=== PATIENT | male | born 1950 | race Caucasian/White ===

== ENCOUNTER 2021-10-31 20:45 | Emergency (ER) | payer MEDICARE, BC, SELFPAY ==
[2021-10-31] VITALS (10 sets, daily range): BP systolic 114–126; BP diastolic 61–68; PULSE 84–110; RESP 18–38; TEMP 36.2; O2SAT 95–97; BMI 32.1
--- NOTE | 2021-10-31 21:09 | DI.RAD.S_ITS ---
PROCEDURE: XR CHEST 1V INDICATIONS: chest pain TECHNIQUE: One view of the chest was acquired. COMPARISON: None. FINDINGS: Surgical changes and devices: None. Lungs and pleura: Lungs are clear. No pleural effusions or pneumothorax. Mediastinum: Mediastinal contours appear normal. Heart size is normal. Bones and chest wall: No suspicious bony lesions. Overlying soft tissues appear unremarkable. IMPRESSION: No acute cardiopulmonary process demonstrated radiographically. Dictated by: Adolph Lutz M.D. on 10/31/2021 at 21:32 Approved by: Adolph Lutz M.D. on 10/31/2021 at 21:32
[2021-10-31 21:22] LABS: Add Manual Diff / Slide Review NO; Basophils Absolute Auto 0 /uL (0-100); Eosinophils Absolute Auto 0 /uL (0-450); Eosinophils Percent Auto 1.1 % (2-4); Hematocrit 37.1 % (41-53); Hemoglobin 12.5 g/dL (13.5-17.5); Lymphocytes Absolute Auto 1300 /uL (1100-4500); Lymphocytes Percent Auto 30.1 % (25-40); Mean Corpuscular HGB Conc 33.6 % (30-36); Mean Corpuscular Hemoglobin 27.5 PG (26-34); Mean Corpuscular Volume 81.8 fL (80-100); Monocytes Absolute Auto 400 /uL (0-900); Monocytes Percent Auto 10.3 % (3-14); Neutrophils Absolute Auto 2400 /uL (1500-7000); Neutrophils Percent Auto 57.5 % (50-75); Platelet Count 203 X10^3/uL (150-400); Red Blood Cell Count 4.53 X10^6/uL (4.5-5.9); Red Cell Distribution Width 15.2 % (11.6-14.8); White Blood Cell Count 4.2 X10^3/uL (4.5-11.0)
[2021-10-31 21:25] LABS: Alanine Aminotransferase 15 IU/L (<50); Albumin 4.1 g/dL (3.5-5.0); Albumin Globulin Ratio 1.3 (1.0-2.8); Alkaline Phosphatase 58 U/L (38-126); Aspartate Aminotransferase 32 IU/L (17-59); BUN Creatinine Ratio 7.5 (6-22); Bilirubin Total 0.3 mg/dL (0.2-1.3); Blood Urea Nitrogen 8 mg/dL (9-20); Calcium 8.3 mg/dL (8.4-10.2); Carbon Dioxide 22 mmol/L (22-32); Chloride 99 mmol/L (98-107); Creatine Kinase 112 U/L (55-170); Estimated Glomerular Filt Rate > 60 mL/min (>60); Globulin 3.1 g/dL (1.7-4.1); Glucose 157 mg/dL (80-110); HEMOLYSIS 15 (0-50); Sodium 132 mmol/L (137-145); Total Protein 7.2 g/dL (6.3-8.2)
--- NOTE | 2021-10-31 21:33 | ED.SYNCOPE ---
HPI - Syncope General Chief Complaint: Syncope Stated Complaint: Syncope Time Seen by Provider: 10/31/21 21:09 Source: patient and EMS Mode of arrival: EMS Limitations: no limitations History of Present Illness HPI narrative: Patient brought in by ambulance from a restaurant. A [place] restaurant. For syncope. Blood sugar 157 by EMS. Patient is awake alert oriented x4. Has no complaints. EKG by EMS sinus rhythm. Patient states it was very hot in the restaurant. It is very hot right now the summer. We are under a heat wave. It is 90+ degrees outside. Patient states he felt very warm and hot and sweaty and he states he passed out. He states it was less than 1 minute. Denies any fall or injury. He was in a seated position at the restaurant. Patient feels much better now. Patient states this has happened before with hot weather. In February of last year he was in [place] and was very hot hand he did not have very much to drink. He passed out then. No injury. Patient denies today any presyncope chest pain palpitations dizziness headache chest pain abdominal pain back pain. Denies any recent illness. No recent black or bloody stools. Patient states the whole family feels hot in the restaurant Related Data Allergies Allergy/AdvReac Type Severity Reaction Status Date / Time No Known Drug Allergies Allergy Verified 10/31/21 22:03 Review of Systems Review of Systems Narrative: GENERAL: Denies chills, fatigue, malaise, fever, positive for sweats. HEENT: Denies sinus pain, ear pain, sore throat RESPIRATORY: Denies dyspnea, cough CARDIOVASCULAR: Denies chest pain, palpitations GASTROINTESTINAL: Denies nausea, vomiting, abdominal pain : Denies dysuria, frequency, hematuria MUSCULOSKELETAL: denies muscle or bony pain SKIN: Denies rash, skin lesions NEUROLOGIC: Denies weakness, numbness, positive for dizziness ROS Unobtainable: All systems reviewed & are unremarkable except as noted in HPI and below Patient History Social History Smoking Status: Never smoker Smoking Status: Never smoker alcohol intake frequency: 3 or more drinks per day Substance Use Type: does not use Exam Narrative Exam Narrative: GENERAL: in no distress, not toxic not dyspneic HEAD: Normocephalic. EYES: Pupils equal round No scleral icterus. ENT: Mucous membranes moist. NECK: Trachea midline. CARDIOVASCULAR: Regular rate and rhythm without murmurs RESPIRATORY: Clear to auscultation. Breath sounds equal bilaterally. No wheezes, rales, or rhonchi. GASTROINTESTINAL: Abdomen soft, non-tender EXTREMITIES: No gross deformities. BACK: No flank tenderness. NEURO: AOx4. 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 SKIN: Warm and dry PSYCH: Not anxious, is cooperative Initial Vital Signs Initial Vital Signs: Vital Signs Pulse Rate 89 10/31/21 20:52 Respiratory Rate 25 H 10/31/21 20:52 Pulse Oximetry 97 10/31/21 20:52 Course Course Course Narrative: No new issues during course of stay Orders Ordered: ED Orders 10/31/21 23:00 CT angio chest PE protocol Stat 10/31/21 23:15 Respiratory Panel (Film Array) Stat 11/01/21 00:22 Troponin & CK Cardiac Panel Stat Discontinued Medications Hydromorphone HCl (Hydromorphone 1 Mg Inj) 1 mg IV NOW ONE Stop: 11/01/21 01:12 Last Admin: 11/01/21 02:35 Dose: Not Given Documented By: TIM Sodium Chloride (Normal Saline 0.9%) 1,000 mls @ 1,000 mls/hr IV BOLUS ONE Stop: 10/31/21 23:59 Last Admin: 10/31/21 23:46 Dose: Not Given Documented By: TIM Ondansetron HCl (Ondansetron 4 Mg/2 Ml Inj) 4 mg IV NOW ONE Stop: 11/01/21 01:12 Last Admin: 11/01/21 02:36 Dose: Not Given Documented By: TIM Reevaluation(s) Reevaluation #1: Family did not show appear. [place]. I did speak with . Patient had fever and nausea vomiting 2 days ago. History UTIs in the past. Patient does have history of pulmonary embolism now discovered, patient did not reveal this earlier. CT scan will be ordered. Normal saline ordered. COVID swab ordered. Time: 22:59 Reevaluation #2: Reviewed images with patient. Laboratory repeated troponin no change. Still normal. Viral swab is negative. Likely vasovagal episode. Return precautions reviewed with him. He desires discharge home. Time: 01:31 Additional Reevaluation(s): Patient did stay in the department until 630 in the morning due to family could not pick him up his cannot drive in the dark and no others could pick him up. No new complaints or issues during course of stay Vital Signs Vital signs: Vital Signs - 8 hr 10/31/21 23:00 10/31/21 23:00 10/31/21 23:30 Pulse Rate 84 Respiratory Rate 21 33 H Blood Pressure 123/65 Pulse Oximetry 96 11/01/21 00:00 11/01/21 00:01 11/01/21 00:01 Pulse Rate 99 H 92 H Respiratory Rate 19 19 Blood Pressure 130/75 Pulse Oximetry 96 95 11/01/21 00:30 11/01/21 01:00 11/01/21 01:30 Pulse Rate 84 82 79 Respiratory Rate 15 20 23 Blood Pressure Pulse Oximetry 97 94 94 MDM - Syncope Differential Diagnosis Differential diagnosis: Likely syncope due to orthostatic hypotension, vasovagal syncope, complete atrioventricular block, pulmonary embolism and dehydration Lab Data Result diagrams: 10/31/21 20:35 10/31/21 20:35 Labs: Lab Results 10/31/21 10/31/21 10/31/21 Range/Units 20:35 20:35 21:30 WBC 4.2 L (4.5-11.0) X10^3/uL RBC 4.53 (4.5-5.9) X10^6/uL Hgb 12.5 L (13.5-17.5) g/dL Hct 37.1 L (41-53) % MCV 81.8 (80-100) fL MCH 27.5 (26-34) PG MCHC 33.6 (30-36) % RDW 15.2 H (11.6-14.8) % Plt Count 203 (150-400) X10^3/uL Neut % (Auto) 57.5 (50-75) % Lymph % (Auto) 30.1 (25-40) % [place] % (Auto) 10.3 (3-14) % Eos % (Auto) 1.1 L (2-4) % Baso % (Auto) 1.0 (0-2) % Neut # (Auto) 2400 (1263-0842) /uL Lymph # (Auto) 1300 (8727-0013) /uL [place] # (Auto) 400 (0-900) /uL Eos # (Auto) 0 (0-450) /uL Baso # (Auto) 0 (0-100) /uL Sodium 132 L (137-145) mmol/L Potassium 4.0 (3.4-5.1) mmol/L Chloride 99 (98-107) mmol/L Carbon Dioxide 22 (22-32) mmol/L BUN 8 L (9-20) mg/dL Creatinine 1.07 (0.66-1.25) mg/dL Estimated GFR > 60 (>60) mL/min BUN/Creatinine Ratio 7.5 (6-22) Glucose 157 H (80-110) mg/dL Calcium 8.3 L (8.4-10.2) mg/dL Total Bilirubin 0.3 (0.2-1.3) mg/dL AST 32 (17-59) IU/L ALT 15 (<50) IU/L Alkaline Phosphatase 58 (38-126) U/L Total Creatine Kinase 112 (55-170) U/L CK-MB (CK-2) 0.97 (<2.37) ng/mL CK-MB (CK-2) Rel Index 0.9 L (1.5-5.0) % Troponin I < 0.012 (0.01-0.034) ng/mL Total Protein 7.2 (6.3-8.2) g/dL Albumin 4.1 (3.5-5.0) g/dL Globulin 3.1 (1.7-4.1) g/dL Albumin/Globulin Ratio 1.3 (1.0-2.8) Urine Color Yellow Urine Appearance Clear Urine pH 6.5 (4.5-8.0) Ur Specific [place] <=1.005 (1.000-1.035) Urine Protein Negative (Negative) Urine Glucose (UA) Negative (Negative) g/dL Urine Ketones Negative (NEGATIVE) Urine Occult Blood Trace-lysed (Negative) Urine Nitrate Negative (Negative) Urine Bilirubin Negative (NEGATIVE) Urine Urobilinogen 0.2 (0.2) E.U./dL Ur Leukocyte Esterase Negative (NEGATIVE) Urine RBC None seen (0-5/HPF) Urine WBC 0-1/hpf (0-5/HPF) Ur Squamous Epith Cells 0-1 /hpf (0-5/HPF) Urine Bacteria None seen (None) Ur Culture Indicated? Cult not indicated Chlamy pneumoniae PCR (Not Detect) Adenovirus (PCR) (Not Detect) B. pertussis DNA (PCR) (Not Detecte) B.parapertussis DNA PCR (Not Detecte) Coronavirus OC43 (PCR) (Not Detect) Coronavirus HKU1 (PCR) (Not Detect) Coronavirus 229E (PCR) (Not Detect) SARS-CoV-2 (PCR) (Not Detecte) Coronavirus NL63 (PCR) (Not Detect) Human Metapneumovir PCR (Not Detect) Influenza Type A (PCR) (Not Detect) Influenza Type B (PCR) (Not Detect) M. pneumoniae (PCR) (Not Detect) Parainfluenza 1 (PCR) (Not Detect) Parainfluenza 2 (PCR) (Not Detect) Parainfluenza 3 (PCR) (Not Detect) Parainfluenza 4 (PCR) (Not Detect) RSV (PCR) (Not Detect) Entero/Rhino (PCR) (Not Detect) 10/31/21 11/01/21 Range/Units 23:15 00:22 WBC (4.5-11.0) X10^3/uL RBC (4.5-5.9) X10^6/uL Hgb (13.5-17.5) g/dL Hct (41-53) % MCV (80-100) fL MCH (26-34) PG MCHC (30-36) % RDW (11.6-14.8) % Plt Count (150-400) X10^3/uL Neut % (Auto) (50-75) % Lymph % (Auto) (25-40) % [place] % (Auto) (3-14) % Eos % (Auto) (2-4) % Baso % (Auto) (0-2) % Neut # (Auto) (5342-2439) /uL Lymph # (Auto) (0866-6954) /uL [place] # (Auto) (0-900) /uL Eos # (Auto) (0-450) /uL Baso # (Auto) (0-100) /uL Sodium (137-145) mmol/L Potassium (3.4-5.1) mmol/L Chloride (98-107) mmol/L Carbon Dioxide (22-32) mmol/L BUN (9-20) mg/dL Creatinine (0.66-1.25) mg/dL Estimated GFR (>60) mL/min BUN/Creatinine Ratio (6-22) Glucose (80-110) mg/dL Calcium (8.4-10.2) mg/dL Total Bilirubin (0.2-1.3) mg/dL AST (17-59) IU/L ALT (<50) IU/L Alkaline Phosphatase (38-126) U/L Total Creatine Kinase 95 (55-170) U/L CK-MB (CK-2) TNP (<2.37) ng/mL CK-MB (CK-2) Rel Index TNP (1.5-5.0) % Troponin I < 0.012 (0.01-0.034) ng/mL Total Protein (6.3-8.2) g/dL Albumin (3.5-5.0) g/dL Globulin (1.7-4.1) g/dL Albumin/Globulin Ratio (1.0-2.8) Urine Color Urine Appearance Urine pH (4.5-8.0) Ur Specific [place] (1.000-1.035) Urine Protein (Negative) Urine Glucose (UA) (Negative) g/dL Urine Ketones (NEGATIVE) Urine Occult Blood (Negative) Urine Nitrate (Negative) Urine Bilirubin (NEGATIVE) Urine Urobilinogen (0.2) E.U./dL Ur Leukocyte Esterase (NEGATIVE) Urine RBC (0-5/HPF) Urine WBC (0-5/HPF) Ur Squamous Epith Cells (0-5/HPF) Urine Bacteria (None) Ur Culture Indicated? Chlamy pneumoniae PCR Not detected (Not Detect) Adenovirus (PCR) Not detected (Not Detect) B. pertussis DNA (PCR) Not detected (Not Detecte) B.parapertussis DNA PCR Not detected (Not Detecte) Coronavirus OC43 (PCR) Not detected (Not Detect) Coronavirus HKU1 (PCR) Not detected (Not Detect) Coronavirus 229E (PCR) Not detected (Not Detect) SARS-CoV-2 (PCR) Not detected (Not Detecte) Coronavirus NL63 (PCR) Not detected (Not Detect) Human Metapneumovir PCR Not detected (Not Detect) Influenza Type A (PCR) Not detected (Not Detect) Influenza Type B (PCR) Not detected (Not Detect) M. pneumoniae (PCR) Not detected (Not Detect) Parainfluenza 1 (PCR) Not detected (Not Detect) Parainfluenza 2 (PCR) Not detected (Not Detect) Parainfluenza 3 (PCR) Not detected (Not Detect) Parainfluenza 4 (PCR) Not detected (Not Detect) RSV (PCR) Not detected (Not Detect) Entero/Rhino (PCR) Not detected (Not Detect) Imaging Data Chest x-ray: Radiologist's Impression: [place] [address] XRay Report Signed Patient: Michele Pina MR#: [id number] : 1950 Acct:[id number] Age/Sex: 71 / M Date of Service: 10/31/21 Loc: ED Accession Number: [id number] ?? Procedure: XR chest 1V Ordering Provider: Allen Hilario MD PROCEDURE:? XR CHEST 1V ? INDICATIONS:? chest pain ? TECHNIQUE:? One view of the chest was acquired.? ? COMPARISON:? None. ? FINDINGS:? ? Surgical changes and devices:? None.? ? Lungs and pleura:? Lungs are clear.? No pleural effusions or pneumothorax.? ? Mediastinum:? Mediastinal contours appear normal.? Heart size is normal.? ? Bones and chest wall:? No suspicious bony lesions.? Overlying soft tissues appear unremarkable.? ? IMPRESSION:? No acute cardiopulmonary process demonstrated radiographically. ? Dictated by: Adolph Lutz M.D. on 10/31/2021 at 21:32 ? ? Approved by: Adolph Lutz M.D. on 10/31/2021 at 21:32 ? CT scan - chest: Radiologist's Impression: [address] [address] [address] Scan Report Signed Patient: Michele Pina MR#: [id number] : 1950 Acct:[id number] Age/Sex: 71 / M Date of Service: 10/31/21 Loc: ED Accession Number: [id number] ?? Procedure: CT angio chest PE protocol Ordering Provider: Allen Hilario MD PROCEDURE:? CT ANGIO CHEST PE PROTOCOL ? INDICATIONS:? Syncope ? TECHNIQUE:? After the administration of intravenous contrast, 2 mm thick sections acquired from the pulmonary apices to the posterior costophrenic angles.? 3-dimensional maximum intensity projection (MIP) coronal and sagittal reformats were then acquired through the thorax.? For radiation dose reduction, the following was used:? automated exposure control, adjustment of mA and/or kV according to patient size.? ? COMPARISON:? None. ? FINDINGS:? Image quality:? Excellent.? ? Pulmonary arteries:? Pulmonary arteries are normal in size, and demonstrate no intraluminal filling defects to suggest central pulmonary embolism.? ? Lungs and pleura:? Lungs are clear.? No pleural effusions or pneumothorax.? Central and peripheral airways are patent.? ? Mediastinum:? Heart size is normal, without pericardial effusion.? No mediastinal or hilar adenopathy.? Thoracic aorta is normal in caliber and enhancement.? Esophagus is normal in caliber, without hiatal hernia.? ? Bones and chest wall:? No suspicious bony lesions.? Ribs and thoracic spine appear intact throughout.? Thyroid gland normal.? No axillary or supraclavicular adenopathy.? ? Abdomen:? Visualized upper abdominal solid organs appear normal in the early arterial phase of enhancement.? ? IMPRESSION:? No pulmonary embolism or other acute finding in the chest. ? ? Dictated by: Adolph Lutz M.D. on 10/31/2021 at 23:39 ? ? Approved by: Adolph Lutz M.D. on 10/31/2021 at 23:40 ? ECG Data Interpretation: Normal sinus rhythm 86 rate, no ST elevation or depression MDM Narrative Medical decision making narrative: Appropriate for discharge home. Exam and laboratory studies are reassuring. No chest pain no palpitations no disease no complaints of back pain or abdominal pain prior to syncope. Likely vasovagal. Reviewed with patient and . Spoke to by phone. She is able to come here. Does not drive in the dark. Similar episode in February of this year and when it was very high and down there. It is very hot here. With recent fever and nausea vomiting a couple days ago may have triggered easily tonight be in hot environment to pass out. Return precautions reviewed with patient. Not toxic at discharge. At baseline at discharge. No complaints. Discharge Plan Departure Patient Disposition: Home Clinical Impression: Vasovagal syncope Instructions: DI for Syncope in Adults (Fainting) Activity Restrictions/Additional Instructions: Keep well hydrated. Return if worse if any questions or concerns. Be very careful being in the heat as it may cause lowering of blood pressure and cause you to pass out. Keep well hydrated. Try to stay in cool environment as best as you can. It is very hot this summer.
[2021-10-31 21:37] LABS: Troponin I < 0.012 ng/mL (0.01-0.034)
[2021-10-31 21:40] LABS: CKMB % Relative Index 0.9 % (1.5-5.0); Creatine Kinase MB 0.97 ng/mL (<2.37)
[2021-10-31 22:10] LABS: Appearance Urine UA CLEAR; Bilirubin Urine UA NEGATIVE (NEGATIVE); Color Urine UA YELLOW; Glucose Urine UA NEGATIVE (Negative); Ketones Urine UA NEGATIVE (NEGATIVE); Leukocyte Esterase Urine UA NEGATIVE (NEGATIVE); Nitrite Urine UA NEGATIVE (Negative); Occult Blood Urine UA TRACE-LYSED (Negative); Protein Urine UA NEGATIVE (Negative); Specific Gravity Urine UA <=1.005 (1.000-1.035); Urobilinogen Urine UA 0.2 E.U./dL (0.2); pH Urine UA 6.5 (4.5-8.0)
--- NOTE | 2021-10-31 22:13 | PC.NURSE ---
Pt was eating dinner in a non- air conditioned restaurant when he became overheated and felt faint. States witnessed LOC at dinner table of about 1 minute, did not fall
[2021-10-31 22:18] LABS: Bacteria Urine None Seen; Culture Indicated Urine Cult Not Indicated; RBC Urine None Seen (0-5/HPF); Squamous Epithelial Cell Urine 0-1 /HPF (0-5/HPF); WBC Urine 0-1/HPF (0-5/HPF)
--- NOTE | 2021-10-31 23:00 | DI.CT.S_ITS ---
PROCEDURE: CT ANGIO CHEST PE PROTOCOL INDICATIONS: Syncope TECHNIQUE: After the administration of intravenous contrast, 2 mm thick sections acquired from the pulmonary apices to the posterior costophrenic angles. 3-dimensional maximum intensity projection (MIP) coronal and sagittal reformats were then acquired through the thorax. For radiation dose reduction, the following was used: automated exposure control, adjustment of mA and/or kV according to patient size. COMPARISON: None. FINDINGS: Image quality: Excellent. Pulmonary arteries: Pulmonary arteries are normal in size, and demonstrate no intraluminal filling defects to suggest central pulmonary embolism. Lungs and pleura: Lungs are clear. No pleural effusions or pneumothorax. Central and peripheral airways are patent. Mediastinum: Heart size is normal, without pericardial effusion. No mediastinal or hilar adenopathy. Thoracic aorta is normal in caliber and enhancement. Esophagus is normal in caliber, without hiatal hernia. Bones and chest wall: No suspicious bony lesions. Ribs and thoracic spine appear intact throughout. Thyroid gland normal. No axillary or supraclavicular adenopathy. Abdomen: Visualized upper abdominal solid organs appear normal in the early arterial phase of enhancement. IMPRESSION: No pulmonary embolism or other acute finding in the chest. Dictated by: Adolph Lutz M.D. on 10/31/2021 at 23:39 Approved by: Adolph Lutz M.D. on 10/31/2021 at 23:40
[2021-11-01] VITALS (7 sets, daily range): BP systolic 130–141; BP diastolic 75–81; PULSE 77–99; RESP 15–27; O2SAT 94–97
[2021-11-01 00:27] LABS: Adenovirus Not Detected (Not Detect); B. parapertussis Not Detected (Not Detecte); Bordetella pertussis Not Detected (Not Detecte); Chlamydophila pneumoniae Not Detected (Not Detect); Coronavirus 229E Not Detected (Not Detect); Coronavirus HKU1 Not Detected (Not Detect); Coronavirus NL 63 Not Detected (Not Detect); Coronavirus OC43 Not Detected (Not Detect); Human Metapneumovirus Not Detected (Not Detect); Human Rhinovirus/Enterovirus Not Detected (Not Detect); Influenza A Not Detected (Not Detect); Influenza B Not Detected (Not Detect); Mycoplasma pneumoniae Not Detected (Not Detect); Parainfluenza Virus 1 Not Detected (Not Detect); Parainfluenza Virus 2 Not Detected (Not Detect); Parainfluenza Virus 3 Not Detected (Not Detect); Parainfluenza Virus 4 Not Detected (Not Detect); Respiratory Syncytial Virus Not Detected (Not Detect); SARS- CoV-2 Not Detected (Not Detecte)
[2021-11-01 01:01] LABS: Creatine Kinase 95 U/L (55-170)
[2021-11-01 01:14] LABS: Troponin I < 0.012 ng/mL (0.01-0.034)
== END 2021-11-01 06:51 | disposition home or self-care (01) ==
PROVIDERS: Emergency Provider Emergency Medicine
DX: R55 Syncope and collapse (principal); R07.9 Chest pain, unspecified
CPT/HCPCS: 36415; 71045; 71275; 80053; 81001; 82550; 82553; 84484; 85025; 87633; 93005; 99284; Q9967

== ENCOUNTER 2024-01-04 19:59 | Emergency (ER) | payer MEDICARE, SELFPAY ==
[2024-01-04] VITALS (10 sets, daily range): BP systolic 140–157; BP diastolic 72–79; PULSE 60–83; RESP 18; TEMP 36.4; O2SAT 96–98; BMI 29.2
--- NOTE | 2024-01-04 20:03 | ED_ITS ---
HPI - Altered Mental Status General Chief Complaint: Diabetic Problem Stated Complaint: low blood sugar Time Seen by Provider: 01/04/24 20:00 History of Present Illness HPI narrative: 73-year-old male presents by EMS from home for altered mental status and low blood glucose. Patient was staying at the [facility] with his . He reportedly has not eaten very much today and has had several alcoholic beverages. Per EMS the patient's came up from the [facility] and found the patient lying on the bed staring at the ceiling. EMS states that when they arrived the patient's blood glucose was 29. They gave him 250 mL of D10 and blood glucose improved to 112. Patient denies history of diabetes. He has not been on any of his usual medications for several weeks because he has been staying in [place] for the summer from [place] and didn't refill his medications. On arrival to the emergency department patient was awake, alert, oriented, in no acute distress. Related Data Allergies Allergy/AdvReac Type Severity Reaction Status Date / Time sulfamethoxazole Allergy Verified 01/04/24 20:09 [From Bactrim] trimethoprim [From Bactrim] Allergy Verified 01/04/24 20:09 Patient History Social History Smoking Status: Never smoker Smoking Status: Never smoker alcohol intake frequency: 3 or more drinks per day Substance Use Type: does not use Exam Initial Vital Signs Initial Vital Signs: Vital Signs Pulse Rate 77 01/04/24 20:06 Pulse Oximetry 97 01/04/24 20:06 Const: Awake, alert, no acute distress, nontoxic appearing Cardiac: regular rate, regular rhythm RESP: unlabored, clear bilaterally, no wheezing GI: Soft, nontender, nondistended, no rebound, no guarding MSK: Atraumatic, full range of motion, pulses equal Skin: Warm, Dry, intact, no rashes Neuro: AO x3, CN II-XII grossly intact, moves all extremities Course Orders Ordered: ED Orders 01/04/24 21:15 Urinalysis and Microscopic Stat Urine Culture Stat 01/04/24 21:48 CBC Auto Diff [Complete Blood Count AUTO DIFF] Stat CMP [Comprehensive Metabolic Panel] Stat Ethanol (ETOH) Stat Discontinued Medications Folic Acid (Folic Acid 1 Mg Tablet) 1 mg PO NOW ONE Stop: 01/04/24 20:04 Last Admin: 01/04/24 20:37 Dose: 1 mg Documented By: ESTELA Thiamine HCl 200 mg/ Sodium (Chloride) 102 mls @ 408 mls/hr IV NOW ONE Stop: 01/04/24 20:04 Last Infusion: 01/04/24 21:03 Dose: Infused Documented By: Admin: 01/04/24 20:39 Dose: 408 mls/hr Documented By: ESTELA Vital Signs Vital signs: Vital Signs - 8 hr 01/04/24 22:30 01/04/24 22:30 01/04/24 23:00 Pulse Rate 67 65 Respiratory Rate 18 Blood Pressure 152/75 H Pulse Oximetry 97 96 Oxygen Delivery Method 01/04/24 23:00 01/04/24 23:30 01/04/24 23:30 Pulse Rate 61 Respiratory Rate Blood Pressure 140/73 145/75 H Pulse Oximetry 96 Oxygen Delivery Method 01/05/24 00:00 01/05/24 00:00 01/05/24 00:30 Pulse Rate 65 Respiratory Rate Blood Pressure 158/83 H 160/83 H Pulse Oximetry 94 Oxygen Delivery Method 01/05/24 00:30 01/05/24 01:11 01/05/24 01:30 Pulse Rate 63 73 80 Respiratory Rate Blood Pressure Pulse Oximetry 96 97 96 Oxygen Delivery Method 01/05/24 01:38 01/05/24 01:38 01/05/24 02:00 Pulse Rate 83 80 Respiratory Rate Blood Pressure 134/82 Pulse Oximetry 97 96 Oxygen Delivery Method Room Air 01/05/24 02:00 Pulse Rate Respiratory Rate Blood Pressure 134/66 Pulse Oximetry Oxygen Delivery Method MDM - Altered Mental Status Lab Data 01/04/24 21:48 01/04/24 21:48 Labs: Lab Results 01/04/24 01/04/24 Range/Units 21:15 21:48 WBC 7.2 (4.5-11.0) X10^3/uL RBC 3.87 L (4.5-5.9) X10^6/uL Hgb 10.0 L (13.5-17.5) g/dL Hct 30.4 L (41-53) % MCV 78.5 L (80-100) fL MCH 25.8 L (26-34) PG MCHC 32.9 (30-36) % RDW 14.9 H (11.6-14.8) % Plt Count 172 (150-400) X10^3/uL Neut % (Auto) 79.8 H (50-75) % Lymph % (Auto) 11.1 L (25-40) % [place] % (Auto) 7.5 (3-14) % Eos % (Auto) 1.2 L (2-4) % Baso % (Auto) 0.4 (0-2) % Neut # (Auto) 5700 (2454-9765) /uL Lymph # (Auto) 800 L (3563-9846) /uL [place] # (Auto) 500 (0-900) /uL Eos # (Auto) 100 (0-450) /uL Baso # (Auto) 0 (0-100) /uL Sodium 135 L (137-145) mmol/L Potassium 3.6 (3.4-5.1) mmol/L Chloride 109 H (98-107) mmol/L Carbon Dioxide 23 (22-32) mmol/L BUN 14 (9-20) mg/dL Creatinine 0.87 (0.66-1.25) mg/dL Estimated GFR > 60 (>60) mL/min BUN/Creatinine Ratio 16.1 (6-22) Glucose 84 (80-110) mg/dL Calcium 8.2 L (8.4-10.2) mg/dL Total Bilirubin 0.3 (0.2-1.3) mg/dL AST 20 (17-59) IU/L ALT 15 (<50) IU/L Alkaline Phosphatase 66 (38-126) U/L Total Protein 5.8 L (6.3-8.2) g/dL Albumin 3.2 L (3.5-5.0) g/dL Globulin 2.6 (1.7-4.1) g/dL Albumin/Globulin Ratio 1.2 (1.0-2.8) Urine Color Yellow Urine Appearance Clear Urine pH 6.0 (4.5-8.0) Ur Specific [place] 1.015 (1.000-1.035) Urine Protein Negative (Negative) Urine Glucose (UA) Negative (Negative) g/dL Urine Ketones Negative (NEGATIVE) Urine Occult Blood Trace-intact (Negative) Urine Nitrate Negative (Negative) Urine Bilirubin Negative (NEGATIVE) Urine Urobilinogen 0.2 (0.2) E.U./dL Ur Leukocyte Esterase 1+ H (NEGATIVE) Urine RBC 0-1/hpf (0-5/HPF) Urine WBC 10-30/hpf H (0-5/HPF) Ur Squamous Epith Cells 1-5 /hpf (0-5/HPF) Calcium Oxalate Crystal Occasional H Urine Bacteria Moderate (10-30) H (None) Urine Mucus 1+ H (Negative) Ur Culture Indicated? Specimen cultured Vol Urine Centrifuged 10ml (spun) Ethyl Alcohol < 10 ( - 10) mg/dL Point of Care Testing Glucose POC 77 MDM Narrative Medical decision making narrative: Nontoxic appearing patient with low blood glucose. Patient did tell medics that he would barely anything that day but [place] alcoholic beverages [place] the [place] before going back up to lay down. Patient denies history of diabetes it was not currently taking any medications. Glucose on arrival 111. Laboratory work ordered, we will monitor patient to see if blood glucose requires correction. It was possible that minimal p.o. intake coupled with multiple alcoholic beverages caused a drop in glucose Patient has been monitored overnight, has not required any additional IV medications to correct glucose. Patient has remained alert, oriented, no signs or symptoms of hypoglycemia. Patient states he feels comfortable going home and will be careful to make sure he eats solid foods before alcohol consumption. He states his will also be with him. Patient will be returning to his hometown soon and will follow up with his PCP. Patient given [facility] PCP card if he plans to remain longer in the local area. Discharge Plan Departure Patient Disposition: Home Clinical Impression: Hypoglycemia Instructions: DI for Hypoglycemia Activity Restrictions/Additional Instructions: [facility] This may be because you did not have very much to eat and had several alcoholic beverages. Avoid drinking alcohol on an empty stomach. Follow up with your primary care doctor when you get back home. If you are staying in the local area you may contact one of the PCPs on this card for an appointment. Stand Alone Forms: Patient Portal/API
[2024-01-04] MEDS: FOLIC ACID 1 MG TABLET PO (20:37)
[2024-01-04] MEDS: THIAMINE 200 MG in SODIUM CHLORIDE 0.9% 100 ML 408 MG IV (20:39)
[2024-01-04 21:35] LABS: Appearance Urine UA CLEAR; Bilirubin Urine UA NEGATIVE (NEGATIVE); Color Urine UA YELLOW; Glucose Urine UA NEGATIVE (Negative); Ketones Urine UA NEGATIVE (NEGATIVE); Leukocyte Esterase Urine UA 1+ (NEGATIVE); Nitrite Urine UA NEGATIVE (Negative); Occult Blood Urine UA TRACE-INTACT (Negative); Protein Urine UA NEGATIVE (Negative); Specific Gravity Urine UA 1.015 (1.000-1.035); Urobilinogen Urine UA 0.2 E.U./dL (0.2)
[2024-01-04 21:45] LABS: Bacteria Urine Moderate (10-30); Calcium Oxalate Crystals Urine Occasional; RBC Urine 0-1/HPF (0-5/HPF); Squamous Epithelial Cell Urine 1-5 /HPF (0-5/HPF); Urine Volume 10mL (spun); WBC Urine 10-30/HPF (0-5/HPF)
[2024-01-04 21:46] LABS: Culture Indicated Urine Specimen Cultured; Mucus Urine 1+ (Negative)
[2024-01-04 22:02] LABS: Add Manual Diff / Slide Review NO; Basophils Absolute Auto 0 /uL (0-100); Basophils Percent Auto 0.4 % (0-2); Eosinophils Absolute Auto 100 /uL (0-450); Eosinophils Percent Auto 1.2 % (2-4); Hematocrit 30.4 % (41-53); Lymphocytes Absolute Auto 800 /uL (1100-4500); Lymphocytes Percent Auto 11.1 % (25-40); Mean Corpuscular HGB Conc 32.9 % (30-36); Mean Corpuscular Hemoglobin 25.8 PG (26-34); Mean Corpuscular Volume 78.5 fL (80-100); Monocytes Absolute Auto 500 /uL (0-900); Monocytes Percent Auto 7.5 % (3-14); Neutrophils Absolute Auto 5700 /uL (1500-7000); Neutrophils Percent Auto 79.8 % (50-75); Platelet Count 172 X10^3/uL (150-400); Red Blood Cell Count 3.87 X10^6/uL (4.5-5.9); Red Cell Distribution Width 14.9 % (11.6-14.8); White Blood Cell Count 7.2 X10^3/uL (4.5-11.0)
[2024-01-04 22:13] LABS: Alanine Aminotransferase 15 IU/L (<50); Albumin 3.2 g/dL (3.5-5.0); Albumin Globulin Ratio 1.2 (1.0-2.8); Alkaline Phosphatase 66 U/L (38-126); Aspartate Aminotransferase 20 IU/L (17-59); BUN Creatinine Ratio 16.1 (6-22); Bilirubin Total 0.3 mg/dL (0.2-1.3); Blood Urea Nitrogen 14 mg/dL (9-20); Calcium 8.2 mg/dL (8.4-10.2); Carbon Dioxide 23 mmol/L (22-32); Chloride 109 mmol/L (98-107); Estimated Glomerular Filt Rate > 60 mL/min (>60); Ethanol (ETOH) < 10 mg/dL; Globulin 2.6 g/dL (1.7-4.1); Glucose 84 mg/dL (80-110); HEMOLYSIS < 15 (0-50); Potassium 3.6 mmol/L (3.4-5.1); Sodium 135 mmol/L (137-145); Total Protein 5.8 g/dL (6.3-8.2)
[2024-01-05] VITALS (14 sets, daily range): BP systolic 134–160; BP diastolic 66–87; PULSE 55–85; RESP 18; TEMP 36.4; O2SAT 94–100
== END 2024-01-05 06:55 | disposition home or self-care (01) ==
PROVIDERS: Emergency Provider Emergency Medicine
DX: E11.649 Type 2 diabetes mellitus with hypoglycemia without coma (principal)
CPT/HCPCS: 80053; 80320; 81001; 82962; 85025; 87077; 87086; 87147; 96365; 99284